=== PATIENT | male | born 1980 | race Native Hawaiian/Other Pacific Islander ===

== ENCOUNTER 2018-12-12 21:38 | Emergency (ER) | payer MEDICAID ==
[2018-12-12] MEDS ORDERED: Sodium Chloride 0.9% 1,000 ML IV STA (21:42)
[2018-12-12] MEDS ORDERED: Lidocaine 150 MG in Sodium Chloride 0.9% 100 ML IV STA (21:42)
[2018-12-12] MEDS ORDERED: Sodium Chloride 0.9% 1,000 ML ONE (21:51)
--- NOTE | 2018-12-12 21:55 | C.PDOC ---
History Of Present Illness 38 year male presents to ED with complaint of new onset right groin pain since 6pm that is radiating to the right flank of the lower back. Patient describes the pain as sharp and intermittent and complains of nausea as well. Patient denies any past history of kidney stones, fever, and any past surgical history. Time Seen by Provider: 12/12/18 21:42 Chief Complaint (Nursing): Back Pain History Per: Patient History/Exam Limitations: no limitations Onset/Duration Of Symptoms: Hrs (4) Current Symptoms Are (Timing): Still Present Quality Of Discomfort: Sharp, Other (Intermittent) Associated Symptoms: Other (pain radiating to the right flank of the lower back) Past Medical History Reviewed: Historical Data, Nursing Documentation, Vital Signs Vital Signs: Last Vital Signs Temp 98.0 F 12/12/18 21:39 Pulse 80 12/12/18 21:39 Resp 20 12/12/18 21:39 BP 132/78 12/12/18 21:39 Pulse Ox 99 12/12/18 21:39 - Medical History PMH: No Chronic Diseases Surgical History: No Surg Hx Family History: States: Unknown Family Hx - Social History Hx Alcohol Use: No Hx Substance Use: No - Immunization History Hx Tetanus Toxoid Vaccination: No Hx Influenza Vaccination: No Hx Pneumococcal Vaccination: No Review Of Systems Constitutional: Negative for: Fever, Chills, Weakness Eyes: Negative for: Redness Cardiovascular: Negative for: Chest Pain Respiratory: Negative for: Cough, Shortness of Breath Gastrointestinal: Positive for: Nausea, Abdominal Pain (right groin ). Negative for: Vomiting, Diarrhea Genitourinary: Negative for: Dysuria, Hematuria Musculoskeletal: Positive for: Back Pain (right flank of lower back) Neurological: Negative for: Weakness, Numbness, Dizziness Physical Exam - Physical Exam Appears: Other (moderate distress and writhing on stretcher) Skin: Normal Color, Warm, Dry Head: Atraumatic, Normacephalic Eye(s): bilateral: Normal Inspection, PERRL, EOMI Neck: Normal ROM, Supple Chest: Symmetrical, No Deformity Cardiovascular: Rhythm Regular, No Murmur Respiratory: Normal Breath Sounds, No Accessory Muscle Use, No Rales, No Rhonchi, No Wheezing Gastrointestinal/Abdominal: Soft, No Tenderness Extremity: Capillary Refill (<2 seconds) Extremity: Bilateral: Atraumatic, Normal ROM Pulses: Left Radial: Normal, Right Radial: Normal Neurological/Psych: Oriented x3, Normal Speech, Normal Cognition ED Course And Treatment - Laboratory Results Result Diagrams: 12/12/18 21:55 12/12/18 21:55 O2 Sat by Pulse Oximetry: 99 Pulse Ox Interpretation: Normal - CT Scan/US Abdomen/Pelvis Other Rad Studies (CT/US): Interpreted By Me, Read By Radiologist CT/US Interpretation: Name:GRISEL CANSECO Exam Date:Dec 12, 2018 10:03:33 PM EST. Modality Type:CT. Description:CT - ABDOMEN AND PELVIS WITH CORONAL AND SAGITTAL MPRS. Gender:M Laterality:Not applicable. :76 Referring Physician:Kenyetta George MD. EXAM: CT Abdomen and Pelvis Without IV contrast. CLINICAL HISTORY: RIGHT FLANK PAIN. TECHNIQUE: Axial computed tomography images of the abdomen and pelvis without intravenous contrast. CONTRAST: No IV contrast. COMPARISON: None provided. FINDINGS: LUNG BASES: 4 mm nodule in the right lower lobe on series 3, image 5 . This could optionally be followed in 12 months if the patient is considered high-risk. Minimal dependent atelectasis near both bases. The heart is no limb large. LIVER: Unremarkable. GALLBLADDER AND BILE DUCTS: The gallbladder appears within normal limits. No radioopaque gallstones are seen. No biliary ductal dilatation is evident. PANCREAS: Unremarkable. SPLEEN: Unremarkable. ADRENAL GLANDS: Unremarkable. KIDNEYS, URETERS, AND BLADDER: There is mild right hydronephrosis and hydroureter to the level of the ureterovesicular junction where there is an obstructing 4 mm calculus on series 3, image 168. Bladder is decompressed. STOMACH AND BOWEL: The stomach is moderately diste nded with food debris and gas. No bowel obstruction. APPENDIX: Normal appendix is seen in the right lower quadrant. PERITONEUM: No free fluid. No free air. LYMPH NODES: No lymphadenopathy is evident. REPRODUCTIVE: Unremarkable as visualized. VASCULATURE: No evidence of abdominal aortic an eurysm. BONES: Their mild degenerative spine changes. IMPRESSION: 1. There is mild right hydronephrosis and hydroureter to the level of the ureterovesicular junction where there is an obstructing 4 mm calculus on series 3, image 168. 2. Additional and incidental findings as described. . Elect ronically signed on Dec 12, 2018 11:26:00 PM EST by: Harris Marcano M.D., MIKE Certified By [facility]BR & [facility]. Fellowship Trained MRI and CT Specialist Progress Note: Abdomen and pelvis w/o PO and IV contrast ordered for patient. Labs ordered with urinalysis for patient. Flomax PO, Lidocaine IV, NaCl IV, Toradol IVP, Tylenol PO, Zofran IVP given to patient. Reevaluation Time: 22:47 Reassessment Condition: Improved (PENDING CT REPORT) Disposition Counseled Patient/Family Regarding: Studies Performed, Diagnosis, Need For Followup, Rx Given - Disposition Referrals: Cary Mcmanus MD [Staff Provider] - Disposition: HOME/ ROUTINE Disposition Time: 23:38 Condition: IMPROVED Prescriptions: Ibuprofen [Motrin] 600 mg PO Q6 #30 tab Ondansetron ODT [Zofran ODT] 4 mg PO TID PRN #12 odt PRN Reason: Nausea/Vomiting oxyCODONE/Acetaminophen [Percocet 5/325 mg Tab] 1 ea PO QID #8 tab Tamsulosin [Flomax] 0.4 mg PO DAILY #14 cap Instructions: Kidney Stones (DC) Forms: [facility] (Bengali), Work Excuse - Clinical Impression Clinical Impression: Ureterolithiasis - Scribe Statement The provider has reviewed the documentation as recorded by the Scribe (Juana Preciado) All medical record entries made by the Scribe were at my direction and personally dictated by me. I have reviewed the chart and agree that the record accurately reflects my personal performance of the history, physical exam, medical decision making, and the department course for this patient. I have also personally directed, reviewed, and agree with the discharge instructions and disposition.
[2018-12-12 22:02] LABS: BASO % 0.3 % (0.0-2.0); EOS # 0.2 K/uL (0.0-0.7); EOS % 1.8 % (0.0-4.0); HEMOGLOBIN 14.5 g/dL (12.0-18.0); LYMPH # 3.1 K/uL (1.0-4.3); LYMPH % 30.8 % (20.0-40.0); MEAN CELL VOLUME 83.8 fL (80.0-94.0); MEAN CORPUSCULAR HEMOGLOBIN 26.7 pg (27.0-31.0); MEAN CORPUSCULAR HGB CONC 31.8 g/dL (33.0-37.0); MEAN PLATELET VOLUME 9.2 fL (7.2-11.7); MONO # 0.8 K/uL (0.0-0.8); MONO % 7.7 % (0.0-10.0); NEUT % 59.4 % (50.0-75.0); NRBC % 0.1 % (0.0-2.0); RBC 5.46 Mil/uL (4.40-5.90); RED CELL DISTRIBUTION WIDTH 13.3 % (11.5-14.5); WHITE BLOOD COUNT 10.1 K/uL (4.8-10.8)
[2018-12-12 22:12] LABS: ALB/GLOB RATIO 1.5 (1.0-2.1); ALBUMIN 4.7 g/dL (3.5-5.0); ALT/SGPT 56 U/L (21-72); AST/SGOT 34 U/L (17-59); BLOOD UREA NITROGEN 16 mg/dL (9-20); CALCIUM 9.2 mg/dl (8.6-10.4); GFR NON-AFRICAN AMERICAN > 60; LIPASE 160 U/L (23-300)
[2018-12-12 22:30] LABS: URINE BILIRUBIN NEGATIVE (NEGATIVE); URINE BLOOD 3+ (NEGATIVE); URINE CLARITY Clear (Clear); URINE COLOR Yellow (YELLOW); URINE GLUCOSE (UA) NORMAL (Normal); URINE LEUKOCYTE ESTERASE NEG Leu/uL (Negative); URINE PROTEIN NEGATIVE (NEGATIVE); URINE UROBILINOGEN NORMAL mg/dL (0.2-1.0)
[2018-12-12 23:49] VITALS: BP 134/88; PULSE 77; RESP 20; TEMP 98.6; O2SAT 100
--- NOTE | 2018-12-13 08:50 | CT ---
Date of service: 12/12/2018 PROCEDURE: CT Abdomen and Pelvis without intravenous contrast HISTORY: r flank/groin abd pain COMPARISON: None. TECHNIQUE: Axial and reformatted coronal and sagittal CT images of the abdomen and pelvis were obtained without IV or oral contrast administration.. Contrast dose: 0 Radiation dose: Total exam DLP = 865.8 mGy-cm. This CT exam was performed using one or more of the following dose reduction techniques: Automated exposure control, adjustment of the mA and/or kV according to patient size, and/or use of iterative reconstruction technique. FINDINGS: LOWER THORAX: Unremarkable. LIVER: Mild hepatic steatosis is noted. No gross lesion or ductal dilatation. GALLBLADDER AND BILE DUCTS: Unremarkable. PANCREAS: Unremarkable. No gross lesion or ductal dilatation. SPLEEN: Unremarkable. ADRENALS: Unremarkable. No mass. KIDNEYS AND URETERS: There is mild right hydronephrosis and hydroureter up to 3.7 millimeter calculus at the right UV junction. The left kidney is grossly unremarkable. VASCULATURE: Unremarkable. No aortic aneurysm. No aortic atherosclerotic calcification or mural plaque present. BOWEL: Unremarkable. No obstruction. No gross mural thickening. APPENDIX: Unremarkable. Normal appendix. PERITONEUM: Unremarkable. No free fluid. No free air. LYMPH NODES: Unremarkable. No enlarged lymph nodes. BLADDER: Unremarkable. REPRODUCTIVE: Unremarkable. BONES: No acute fracture. OTHER FINDINGS: None. IMPRESSION: Mild right hydronephrosis and hydroureter up to 4 millimeter calculus at the right UV junction. Otherwise no evidence of acute pathology in the abdomen and pelvis. Preliminary report contains concordant findings was submitted by [facility].
== END 2018-12-12 23:49 | disposition home or self-care (01) ==
LOC: C.ER 21:38
DX: N20.1 Calculus of ureter (principal)
CPT/HCPCS: 74176; 80053; 81001; 83690; 85025; 96361; 96374; 96375; 99285; J1885; J2001; J2405; J7030